=== PATIENT | male | born 1985 | race Caucasian/White ===

== ENCOUNTER 2016-12-03 21:18 | Emergency (ER) | payer OTHER ==
[2016-12-03] MEDS ORDERED: Sodium Chloride 0.9% 1,000 ML ONE (21:55)
[2016-12-03] MEDS ORDERED: diphenhydrAMINE HCl 50 MG/ML 1 ML VIAL ONE (21:55)
[2016-12-03] MEDS ORDERED: Haloperidol Lactate 5 MG/ML VIAL ONE (21:55)
[2016-12-03 22:33] LABS: #Monocytes 0.8 thou/uL (0.11-0.59); %Basophils 0.7 % (0.0-1.0); %Lymphocytes 14.8 % (21.0-51.0); %Monocytes 11.4 % (0.0-10.0); ALT (SGPT) 18 U/L (0-55); AST (SGOT) 19 U/L (5-34); Alkaline Phosphatase 56 U/L (40-150); Anion Gap 12 mmol/L (10-20); BUN (Urea Nitrogen) 7 mg/dL (8.9-20.6); Bilirubin, Total 0.6 mg/dL (0.2-1.2); Calc. Creatinine Clearance 0 mL/min (70-130); Calcium 8.7 mg/dL (7.8-10.44); Carbon Dioxide 25 mmol/L (22-29); Chloride 92 mmol/L (98-107); Estimated GFR-MDRD Greater than 90; Globulin 2.5 g/dL (2.4-3.5); Hematocrit 33.6 % (42.0-52.0); Mean Platelet Volume 6.5 fL (7.4-10.4); Protein, Total 6.8 g/dL (6.0-8.3); Red Blood Cell (RBC) Count 3.75 mill/uL (4.70-6.10); White Blood Cell (WBC) Count 6.8 thou/uL (4.8-10.8)
[2016-12-03 22:34] LABS: Acetaminophen Less than 3.0 mcg/mL (10.0-30.0); CK (CPK) 210 U/L (30-200); Salicylate Less than 5.0 mg/dL (15.0-30.0)
[2016-12-03 22:39] LABS: Methadone Not Detected (NotDetected); Methamphetamine Not Detected (NotDetected)
--- NOTE | 2016-12-03 23:10 | CT ---
BRAIN CT WITHOUT IV CONTRAST: 12/03/16 HISTORY: 30-year-old male fell from bed and hit the back of head with laceration over the occipital portion o f the skull. There is occipitoparietal scalp swelling and laceration. No mass or bleed or other sign ificant acute process. IMPRESSION: Unremarkable brain CT. No mass or hemorrhage or other acute process. Posterior scalp swelling and la ceration. POS: H
[2016-12-03] MEDS ORDERED: Lorazepam 2 MG/ML VIAL ONE (23:17)
== END 2016-12-04 02:52 ==
LOC: NAV ERS 21:18
DX: F20.0 Paranoid schizophrenia (principal); E87.6 Hypokalemia; F31.9 Bipolar disorder, unspecified; Z87.891 Personal history of nicotine dependence
CPT/HCPCS: 12002; 36415; 70450; 80053; 80306; 80307; 82550; 84443; 85025; 93005; 96361; 96372; 96374; 96375; J1200; J1630; J2060; J7050